=== PATIENT | female | born 1980 | race Caucasian/White ===

== ENCOUNTER 2023-04-24 21:52 | Emergency (ER) | payer OTHER ==
[~2023-04-24] VITALS: Ht 167.6 cm; Wt 109.0 kg
[2023-04-24 22:02] VITALS: BP 123/79; PULSE 78; RESP 16; TEMP 98.2
[2023-04-24 23:16] LABS: APPEARANCE,URINE HAZY (CLEAR); BILIRUBIN,URINE NEGATIVE (NEGATIVE); COLOR,URINE YELLOW (YELLOW); GLUCOSE, URINE (UA) NEGATIVE (NEGATIVE); KETONES,URINE NEGATIVE (NEGATIVE); LEUKOCYTE ESTERASE ,URINE NEGATIVE (NEGATIVE); NITRATE,URINE NEGATIVE (NEGATIVE); OCCULT BLOOD,URINE NEGATIVE (NEGATIVE); PROTEIN,URINE 30-70 mg/dL (NEGATIVE); SPECIFIC GRAVITIY, URINE 1.034 (1.003-1.030); UROBILINOGEN,URINE <=1.0 mg/dL (<=1.0)
[2023-04-24] MEDS ORDERED: LIDOCAINE 5% TRANSDERMAL PATCH TD ONE (23:30)
[2023-04-24] MEDS ORDERED: ACETAMINOPHEN 500 MG TABLET PO ONE (23:30)
[2023-04-24] MEDS ORDERED: IBUPROFEN 600 MG TABLET PO ONE (23:30)
[2023-04-24] MEDS ORDERED: LIDO700A15 TP (23:52)
[2023-04-24] MEDS ORDERED: IBUP-1492 PO (23:52)
[2023-04-24] MEDS ORDERED: ACET-3385 PO (23:52)
== END 2023-04-25 00:35 | disposition home or self-care (01) ==
LOC: EMS 21:55
DX: S39.012A Strain of muscle, fascia and tendon of lower back, initial encounter (principal); Z90.49 Acquired absence of other specified parts of digestive tract; Z98.890 Other specified postprocedural states; X58.XXXA Exposure to other specified factors, initial encounter; Y93.89 Activity, other specified; Y92.89 Other specified places as the place of occurrence of the external cause; Y99.8 Other external cause status
CPT/HCPCS: 81003; 84703; 99284

== ENCOUNTER 2023-08-24 13:26 | Emergency (ER) | payer OTHER ==
[~2023-08-24] VITALS: Ht 170.2 cm; Wt 100.0 kg
[~2023-08-24 13:26] MED LIST: ACET-3385 PO; IBUP-1492 PO; LIDO700A15 TP
[2023-08-24 13:42] VITALS: BP 139/93; PULSE 76; RESP 16; TEMP 98
[2023-08-24 14:34] LABS: INFLUENZA A-RTPCR,COMBO NEGATIVE (NEGATIVE); INFLUENZA B-RTPCR,COMBO NEGATIVE (NEGATIVE); RESPIRATORY SYNCYTIAL VRS-PCR NEGATIVE (NEGATIVE); SARS COVID19 RTPCR, COMBO NEGATIVE (NEGATIVE)
[2023-08-24] MEDS: ACETAMINOPHEN/CODEINE 300-30 MG TABLET PO ONE (15:41)
[2023-08-24] MEDS: PSEUDOEPHEDRINE HCL 30 MG TABLET PO ONE (15:41)
[2023-08-24] MEDS ORDERED: ACET-2080 PO (15:54)
[2023-08-24] MEDS ORDERED: PSEU-191 PO (15:54)
[2023-08-24] MEDS ORDERED: IBUP-1554 PO (15:54)
[2023-08-24] MEDS ORDERED: GUAIFDM PO (15:54)
[2023-08-24] MEDS ORDERED: AZIT250T9 PO (15:55)
== END 2023-08-24 16:12 | disposition home or self-care (01) ==
LOC: EMS 13:26
DX: J20.9 Acute bronchitis, unspecified (principal); H66.93 Otitis media, unspecified, bilateral; J06.9 Acute upper respiratory infection, unspecified; Z20.822 Contact with and (suspected) exposure to COVID-19; Z90.49 Acquired absence of other specified parts of digestive tract; Z98.890 Other specified postprocedural states
CPT/HCPCS: 99283; 0241U